=== PATIENT | female | born 1985 | race Caucasian/White ===

== ENCOUNTER 2019-10-19 | Emergency (ER) | payer OTHER ==
[~2019-10-19] MED LIST: AMBIEN5 MG PO; AMOXICILLIN875 MG PO; BACTRIM DS1 TAB PO; CELEXA10 MG PO; CITALOPRAM20 MG PO; KEFLEX500 MG PO; NAPROSYN500 MG PO; NO HOME MEDS; WELLBUTRIN SR150 MG PO; ZITHROMAX250 MG PO
[2019-10-19] MEDS ORDERED: AMOXICILLIN875 MG PO (12:00)
== END 2019-10-19 12:20 | disposition home or self-care (01) | DRG 153 ==
DX: J02.9 Acute pharyngitis, unspecified (principal); R50.9 Fever, unspecified
CPT/HCPCS: J0561